=== PATIENT | male | born 2000 | race Caucasian/White ===

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

== ENCOUNTER 2022-01-19 15:51 | Emergency (ER) | payer OTHER ==
[2022-01-19] MEDS ORDERED: HYDROXYZINE HCL50 MG PO (17:12)
== END 2022-01-19 17:47 | disposition home or self-care (01) ==
LOC: FER 15:51
DX: F41.0 Panic disorder [episodic paroxysmal anxiety] (principal); E66.9 Obesity, unspecified; Z91.09 Other allergy status, other than to drugs and biological substances
CPT/HCPCS: 99283

== ENCOUNTER 2022-03-03 14:30 | Emergency (ER) | payer OTHER ==
[~2022-03-03 14:30] MED LIST: HYDROXYZINE HCL50 MG PO
== END 2022-03-03 15:46 | disposition home or self-care (01) ==
LOC: FER 14:30
DX: K64.9 Unspecified hemorrhoids (principal)
CPT/HCPCS: 99282